=== PATIENT | female | born 1980 | race Caucasian/White ===

== ENCOUNTER 2022-08-12 09:56 | Inpatient (IN) | payer MEDICAID ==
[~2022-08-12] VITALS: Ht 162.6 cm; Wt 65.7 kg
[2022-08-12 10:32] LABS: BASOPHILS % (AUTO) 2.7 % (0.0-2.0); EOSINOPHILS % (AUTO) 0.6 % (1.0-6.0); HEMATOCRIT 31.9 % (36-46); LYMPHOCYTES # (AUTO) 1.9 K/uL (1.0-4.8); LYMPHOCYTES % (AUTO) 55.2 % (22.0-44.0); MEAN CORPUSCULAR HEMOGLOBIN 25.3 pg (26.0-34.0); MEAN CORPUSCULAR HGB CONC 31.4 G/dL (31.0-37.0); MEAN CORPUSCULAR VOLUME 81 fL (80-100); MONOCYTES # (AUTO) 0.2 K/uL (0.1-1.0); MONOCYTES % (AUTO) 5.7 % (2.0-9.0); NEUTROPHILS # (AUTO) 1.3 K/uL (1.8-7.7); NEUTROPHILS % (AUTO) 35.8 % (40.0-70.0); PLATELET COUNT (AUTO) 359 K/uL (150-450); RED BLOOD CELL COUNT(AUTO) 3.96 MIL/uL (4.00-5.20)
[2022-08-12 10:40] LABS: ANION GAP 10 mmol/L (8-16); CALCIUM, TOTAL 7.8 mg/dL (8.8-10.5); CARBON DIOXIDE 27 mmol/L (22-29); CHLORIDE 105 mmol/L (98-107); CREATININE 0.72 mg/dL (0.60-1.30); GLOMERULAR FILTR. RATE CALC > 60 mL/min (>60); GLUCOSE,RANDOM 92 mg/dL (70-110); POTASSIUM 3.9 mmol/L (3.5-5.1); SODIUM SERUM 142 mmol/L (136-145)
[2022-08-12 10:46] LABS: ALANINE AMINOTRANSFERASE 50 U/L (12-78); ALBUMIN 3.4 g/dL (3.4-5.0); ALKALINE PHOSPHATASE 72 U/L (46-116); ASPARTATE AMINOTRANSFERASE 65 U/L (15-37); BILIRUBIN,TOTAL 0.2 mg/dL (0.1-1.0); TOTAL PROTEIN, SERUM 6.9 g/dL (6.4-8.2)
[2022-08-12] MEDS ORDERED: ZOLPIDEM TARTRATE 10 MG TABLET PO PRN (11:45)
[2022-08-12 11:51] LABS: COVID AG,FIA SOURCE NASOPHARYNGEAL
[2022-08-12 14:23] LABS: AMPHET/METH SCREEN,URINE NEGATIVE (NEGATIVE); BARBITURATE SCREEN, URINE NEGATIVE (NEGATIVE); BENZODIAZEPINES SCREEN,URINE POSITIVE (NEGATIVE); CANNABINOID SCREEN,URINE NEGATIVE (NEGATIVE); COCAINE SCREEN,URINE POSITIVE (NEGATIVE); METHADONE SCREEN, URINE NEGATIVE (NEGATIVE); OPIATE SCREEN,URINE NEGATIVE (NEGATIVE); PHENCYCLIDINE SCREEN,URINE NEGATIVE (NEGATIVE)
[2022-08-12] MEDS: LORazepam 2 MG TABLET PO PRN (23:48)
[2022-08-12] MEDS: HALOPERIDOL 5 MG TABLET PO PRN (23:48)
[2022-08-13] MEDS: LORazepam 2 MG TABLET PO PRN ×4 (06:08→20:35)
[2022-08-13 19:35] VITALS: BP 136/82; PULSE 87; RESP 18; TEMP 97.7; O2SAT 96
[2022-08-13 21:00] VITALS: BP 127/85; PULSE 93; RESP 18; TEMP 97.8; O2SAT 97
[2022-08-13 22:00] VITALS: BP 115/75; PULSE 90; RESP 18; TEMP 97.7; O2SAT 97
[2022-08-13 23:00] VITALS: BP 125/69; PULSE 80; RESP 17; TEMP 97.8; O2SAT 98
[2022-08-14 07:00] VITALS: BP 116/74; PULSE 65; RESP 16; TEMP 97.6; O2SAT 97
[2022-08-14 08:06] VITALS: BP 102/63; PULSE 86; RESP 16; TEMP 98; O2SAT 98
[2022-08-14] MEDS: HALOPERIDOL 5 MG TABLET PO PRN (08:11)
[2022-08-14] MEDS: LORazepam 2 MG TABLET PO PRN ×2 (08:11→22:17)
[2022-08-14] MEDS ORDERED: DIAZEPAM 10 MG TABLET PO PRN ×2 (09:30→10:15)
[2022-08-14 11:30] VITALS: BP 109/63; PULSE 76; RESP 18; TEMP 97.9; O2SAT 97
[2022-08-14] MEDS: DIAZEPAM 10 MG TABLET PO PRN (13:01)
[2022-08-14] MEDS ORDERED: ALBUTEROL SULFATE HFA 90 MCG/PUFF 8 GM INHALER IH PRN (17:30)
[2022-08-14] MEDS ORDERED: ONDANSETRON HCL 4 MG TABLET PO PRN (17:30)
[2022-08-14] MEDS ORDERED: ACETAMINOPHEN 325 MG TABLET PO PRN (17:30)
[2022-08-14] MEDS ORDERED: LOPERAMIDE HCL 2 MG CAPSULE PO PRN (17:30)
[2022-08-14] MEDS ORDERED: DOCUSATE SODIUM 100 MG CAPSULE PO PRN (17:30)
[2022-08-14] MEDS ORDERED: NICOTINE 14 MG/24 HOUR PATCH TD PRN (17:30)
[2022-08-14] MEDS ORDERED: MAG HYDROX/AL HYDROX/SIMETH ES 30 ML SUSPENSION UDCUP PO PRN (17:30)
[2022-08-14] MEDS ORDERED: PETROLATUM,WHITE 28 GM JELLY TP PRN (17:30)
[2022-08-14] MEDS ORDERED: MAGNESIUM HYDROXIDE SUSPENSION 30 ML UDCUP PO PRN (17:30)
[2022-08-14] MEDS ORDERED: CloNIDine HCL 0.1 MG TABLET PO PRN (17:30)
[2022-08-14] MEDS ORDERED: IBUPROFEN 400 MG TABLET PO PRN (17:30)
[2022-08-14] MEDS ORDERED: GuaiFENesin/D-METHORPHAN [SUGAR-FREE] 200-20MG/10 ML SYRUP UDCUP PO PRN (17:30)
[2022-08-15 02:59] VITALS: BP 102/74; PULSE 112; RESP 18; TEMP 97.3; O2SAT 98
[2022-08-15] MEDS: DIAZEPAM 10 MG TABLET PO PRN (03:22)
[2022-08-15] MEDS ORDERED: DIAZEPAM 10 MG TABLET PO PRN ×2 (07:00)
[2022-08-15 08:08] LABS: BASOPHILS % (AUTO) 1.2 % (0.0-2.0); EOSINOPHILS % (AUTO) 4.5 % (1.0-6.0); HEMOGLOBIN 9.7 g/dL (12.0-16.0); LYMPHOCYTES # (AUTO) 1.6 K/uL (1.0-4.8); LYMPHOCYTES % (AUTO) 43.9 % (22.0-44.0); MEAN CORPUSCULAR HGB CONC 30.3 G/dL (31.0-37.0); MEAN CORPUSCULAR VOLUME 82 fL (80-100); MONOCYTES # (AUTO) 0.3 K/uL (0.1-1.0); MONOCYTES % (AUTO) 7.2 % (2.0-9.0); NEUTROPHILS # (AUTO) 1.5 K/uL (1.8-7.7); NEUTROPHILS % (AUTO) 43.2 % (40.0-70.0); PLATELET COUNT (AUTO) 296 K/uL (150-450); RED BLOOD CELL COUNT(AUTO) 3.89 MIL/uL (4.00-5.20); RED CELL DISTRIBUTION WIDTH 21.9 % (11.5-14.5)
[2022-08-15 08:16] LABS: HEMOGLOBIN A1C 4.9 % (3.8-5.6)
[2022-08-15] MEDS: DIAZEPAM 10 MG TABLET PO SCH ×2 (08:19→12:41)
[2022-08-15 08:22] VITALS: BP 125/72; PULSE 81; RESP 18; TEMP 98.2; O2SAT 97
[2022-08-15 08:23] LABS: CHOL/HDL RATIO 1.8 (3.9-5.7)
[2022-08-15] MEDS ORDERED: DIAZEPAM 10 MG TABLET PO SCH (09:00)
[2022-08-17] MEDS ORDERED: DIAZEPAM 5 MG TABLET PO PRN ×2 (07:00)
[2022-08-17] MEDS ORDERED: DIAZEPAM 5 MG TABLET PO SCH ×2 (09:00)
[2022-08-18] MEDS ORDERED: DIAZEPAM 5 MG TABLET PO PRN ×2 (07:00)
== END 2022-08-15 13:15 | disposition home or self-care (01) | DRG 751 ==
LOC: EMS 10:04 → B3A 08-13 17:10
PROVIDERS: ADMIT Psychiatry & Neurology Child & Adolescent Psychiatry; ATTEND Psychiatry & Neurology Child & Adolescent Psychiatry
DX: F33.2 Major depressive disorder, recurrent severe without psychotic features (principal); R45.851 Suicidal ideations; G89.29 Other chronic pain; F10.229 Alcohol dependence with intoxication, unspecified; E73.9 Lactose intolerance, unspecified; G47.00 Insomnia, unspecified; Z20.822 Contact with and (suspected) exposure to COVID-19; D72.819 Decreased white blood cell count, unspecified; D64.9 Anemia, unspecified; M54.2 Cervicalgia; F19.10 Other psychoactive substance abuse, uncomplicated; F41.9 Anxiety disorder, unspecified; M47.812 Spondylosis without myelopathy or radiculopathy, cervical region; Z87.891 Personal history of nicotine dependence; Z88.8 Allergy status to other drugs, medicaments and biological substances; Z91.013 Allergy to seafood; Z98.84 Bariatric surgery status
CPT/HCPCS: 80053; 80061; 80307; 83036; 85025; 87081; 99285; G0480